=== PATIENT | female | born 1950 | race Caucasian/White ===

== ENCOUNTER 2018-09-10 15:47 | Observation (INO) | payer MEDICARE, OTHER ==
[~2018-09-10] VITALS: Ht 152.4 cm; Wt 73.7 kg
[2018-09-10] MEDS ORDERED: MULTCAP PO (16:10)
[2018-09-10] MEDS ORDERED: ROPIvacaine 0.5% 30 ML INJECTION (J2795 PER 1MG) ONE (16:19)
[2018-09-10] MEDS ORDERED: dexameTHASONE 10 MG/1 ML VIAL PRES.FREE (J1100) ONE (16:19)
[2018-09-10] MEDS ORDERED: ONDANSETRON 4MG/2ML VIAL (J2405) IV PRN ×2 (16:30→23:45)
[2018-09-10] MEDS ORDERED: MORPHINE 4 MG/ML 1ML VIAL/SYRINGE (J2270) IV PRN (16:30)
[2018-09-10 16:34] LABS: BASO % 0.2 % (0.0-1.0); EOS % 0.1 % (0.0-3.0); HEMATOCRIT 40.8 % (36.0-47.0); HEMOGLOBIN 13.6 g/dl (12.0-15.5); LYMPH # 1.3 10^3/uL (1.5-4.5); LYMPH % 13.2 % (24.0-44.0); MEAN CORPUSCULAR HEMOGLOBIN 31.9 pg (27.0-33.0); MEAN CORPUSCULAR HGB CONC 33.3 g/dl (32.0-36.5); MEAN CORPUSCULAR VOLUME 95.8 fl (80.0-96.0); MONO # 0.5 10^3/uL (0.0-0.8); MONO % 5.4 % (0.0-5.0); NEUTROPHILS # 8.1 10^3/uL (1.8-7.7); NEUTROPHILS % 80.9 % (36.0-66.0); PLATELET COUNT, AUTOMATED 275 10^3/uL (150-450); RED BLOOD COUNT 4.26 10^6/uL (4.00-5.40)
[2018-09-10] MEDS ORDERED: PEPC10TA6 PO (16:43)
[2018-09-10 16:48] LABS: INR 0.97; PROTHROMBIN TIME 12.6 SECONDS (11.8-14.0)
[2018-09-10 16:50] LABS: ALT/SGPT 27 U/L (12-78); BILIRUBIN,TOTAL 0.9 MG/DL (0.2-1.0); BLOOD UREA NITROGEN 13 MG/DL (7-18); CALCIUM LEVEL 9.3 MG/DL (8.8-10.2); CARBON DIOXIDE LEVEL 30 MEQ/L (21-32); CHLORIDE LEVEL 105 MEQ/L (98-107); CREATININE FOR GFR 0.84 MG/DL (0.55-1.30); GLOMERULAR FILTRATION RATE > 60.0 (>45); GLUCOSE, FASTING 105 MG/DL (70-100); POTASSIUM SERUM 4.2 MEQ/L (3.5-5.1); SODIUM LEVEL 139 MEQ/L (136-145); TOTAL PROTEIN 7.5 GM/DL (6.4-8.2)
--- NOTE | 2018-09-10 16:51 | HPEPDOC ---
General Date of Admission 09/10/18 Date of Service: Sep 10, 2018 Attending Physician: LISSETTE CHUA MD Chief Complaint The patient is a 68-year-old female admitted with a reason for visit of Broken W rist. Source: Patient Exam Limitations: No limitations Timing/Duration: 4-6 hours Severity: Moderate Associated Symptoms: Other (pain in left wrist) History of Present Illness 68 years old white female with no past medical history CAD and mechanical fall sustaining injury to the distal radius on left side and was sent here for orthopedic consultation. Patient complaining of pain at this fracture site, otherwise no other complaints. No chest pain, no nausea, vomiting, no diarrhea, no syncope. Pain is limited to left wrist, nonradiating, sharp, relieved with NSAIDs exacerbated by movement, not as not associated with any other symptoms. Patient will be admitted to medical floor for possible surgery today Home Medications Scheduled Multivitamin (Multivitamins) 1 Each Capsule, 1 CAP PO DAILY, (Reported) Scheduled PRN Famotidine (Pepcid AC) 10 Mg Tablet, 10 MG PO BID PRN for HEARTBURN, (Reported) Allergies Coded Allergies: Tetracyclines (Verified Allergy, Unknown, hives, 09/10/18) Past Medical History Medical History None Surgical History C-sections 2 Family History Significant Family History: No pertinent family hx Social History * Smoker: Denies Alcohol: Denies Drugs: denies A-FIB/CHADSVASC A-FIB History Current/History of A-Fib/PAF?: No Review of Systems Constitutional: Denies: Chills, Fever, Malaise, Night Sweats, Weakness, Fatigue, Weight Loss, Lethargy, Other Eyes: Denies: Pain, Vision change, Conjunctivae inflammation, Eyelid inf lammation, Redness, Other ENT: Denies: Head Aches, Ear Pain, Dysphagia, Sinus Congestion, Post Nasal Drip, Sore Throat, Epistaxis, Other Symptoms Skin: Denies: Rash, Lesions, Jaundice, Bruising, Itching, Dry, Breakdown, Nail Changes, Other Pulmonary: Denies: Dyspnea, Cough, Pleuritic Chest Pain, Other Symptoms Cardiovascular: Denies: Chest Pain, Palpitations, Orthopnea, Paroxysmal Noc. Dyspnea, Edema, Lt Headedness, Other Symptoms Gastrointestinal: Denies: Nausea, Vomiting, Abdominal Pain, Diarrhea, Constipation, Melena, Hematochezia, Other Symptoms Genitourinary: Denies: Dysuria, Frequency, Incontinence, Hematuria, Retention, Other Symptoms Hematologic: Denies: Bruising, Bleeding Excessively, Petecchia, Purpura, Enlarged Lymph Nodes, Other Hematologic Endocrine: Denies: Polydipsia, Polyphagia, Polyuria, Heat Intolerance, Cold Intolerance, Other Endocrine Sx Musculoskeletal: Reports: Other Symptoms (, left wrist pain) Neurological: Denies: Weakness, Numbness, Incoordination, Change in speech, Confusion, Seizures, Other Symptoms Psych: Denies: Mood Normal, Anxiety, Depression, Memory Issues, Thoughts of Self Harm, Anger, Thoughts of Harming Other, Other Psych Physical Examination General Exam: Positive: Alert, Cooperative, No Acute Distress Eye Exam: Positive: PERRLA, Conjunctiva & lids normal ENT Exam: Positive: Atraumatic, Mucous membr. moist/pink Neck Exam: Positive: Supple Chest Exam: Positive: Clear to auscultation, Normal air movement Heart Exam: Positive: Rate Normal, Normal S1 Abdomen Exam: Positive: Normal bowel sounds, Soft Extremity Exam: Positive: Normal pulses Skin Exam: Positive: Nl turgor and temperature, Breakdown Neuro Exam: Positive: Normal Speech, Strength at 5/5 X4 ext (unable to examine her left upper extremity, patient has a soft cast on), Sensation Intact Psych Exam: Positive: Mental status NL, Mood NL, Oriented x 3 Vital Signs Vital Signs Date Time Temp Pulse Resp B/P (MAP) Pulse Ox O2 Delivery O2 Flow Rate FiO2 09/10/18 15:48 96.9 71 17 184/84 (117) 96 Room Air Laboratory Data Labs 24H Laboratory Tests 2 09/10/18 16:19: Immature Granulocyte % (Auto) 0.2, White Blood Count 10.0, Red Blood Count 4.26, Hemoglobin 13.6, Hematocrit 40.8, Mean Corpuscular Volume 95.8, Mean Corpuscular Hemoglobin 31.9, Mean Corpuscular Hemoglobin Concent 33.3, Red Cell Distribution Width 12.6, Platelet Count 275, Neutrophils (%) (Auto) 80.9H, Lymphocytes (%) (Auto) 13.2L, Monocytes (%) (Auto) 5.4H, Eosinophils (%) (Auto) 0.1, Basophils (%) (Auto) 0.2, Neutrophils # (Auto) 8.1H, Lymphocytes # (Auto) 1.3L, Monocytes # (Auto) 0.5, Eosinophils # (Auto) 0.0, Basophils # (Auto) 0.0, Nucleated Red Blood Cells % (auto) 0.0 CBC/BMP Laboratory Tests 09/10/18 16:19 Red Blood Count 4.26, Mean Corpuscular Volume 95.8, Mean Corpuscular Hemoglobin 31.9, Mean Corpuscular Hemoglobin Concent 33.3, Red Cell Distribution Width 12.6, Neutrophils (%) (Auto) 80.9 H, Lymphocytes (%) (Auto) 13.2 L, Monocytes (%) (Auto) 5.4 H, Eosinophils (%) (Auto) 0.1, Basophils (%) (Auto) 0.2, Neutrophils # (Auto) 8.1 H, Lymphocytes # (Auto) 1.3 L, Monocytes # (Auto) 0.5, Eosinophils # (Auto) 0.0, Basophils # (Auto) 0.0 Problems (1) Wrist fracture, left Status: Acute Problem Text: Admit patient to medical floor Morphine sulfate when necessary for pain Zofran when necessary for nausea, vomiting DVT prophylaxis with bilateral SCDs will avoid anticoagulation as patient is possibly going for surgery Patient EKG shows low-voltage but no acute ST-T changes, normal sinus rhythm Chest x-ray: Clear lung stokes, possible hiatal hernia CBC, CMP and PT/INR essentially within normal limits Patient is medically stable and clear for surgery pending. Risk stratification: ASA class I Plan / VTE VTE Prophylaxis Ordered?: Yes VTE Exclusion Pharmacological: Other (presurgical) LISSETTE CHUA MD Sep 10, 2018 16:51
[2018-09-10] MEDS ORDERED: NS 1,000 ML IV SCH (17:00)
--- NOTE | 2018-09-10 17:01 | REP ---
Clinical: Preoperative assessment. Comparison: None. Findings: The cardiac silhouette is normal. Hiatal hernia is suspected. The bilateral lung stokes are clear and without focal consolidation, effusion, or pneumothorax. Skeletal structures are intact. Impression: Possible hiatal hernia versus mediastinal mass. No acute pleuroparenchymal process. Electronically Signed by Rony Faulkner MD 09/10/2018 04:53 P
[2018-09-10] MEDS ORDERED: BUPIVACAINE/EPIN 0.25% 30 ML VIAL As Ordered ONE (18:27)
[2018-09-10] MEDS ORDERED: ceFAZolin 2 GM/D5W 50 ML IV BAG (J0690 PER 500MG) As Ordered ONE (18:27)
[2018-09-10] MEDS ORDERED: ceFAZolin 1GM INJ (J0690 PER 500MG) As Ordered ONE (18:27)
[2018-09-10] MEDS ORDERED: PROPOFOL 200 MG/20 ML VIAL As Ordered ONE (19:12)
[2018-09-10] MEDS ORDERED: ONDANSETRON 4MG/2ML VIAL (J2405) As Ordered ONE (19:13)
[2018-09-10] MEDS ORDERED: LIDOCAINE 2% INJ 100 MG/5 ML SDV (FOR ANES.) As Ordered ONE (19:13)
[2018-09-10] MEDS ORDERED: dexameTHASONE 4 MG/ML 1ML VIAL (J1100) As Ordered ONE (19:13)
[2018-09-10] MEDS ORDERED: fentaNYL 100 MCG/2 ML INJECTION (J3010) As Ordered ONE (19:23)
[2018-09-10] MEDS ORDERED: MIDAZOLAM INJ 2 MG/2 ML VIAL (J2250) As Ordered ONE (19:23)
[2018-09-10] MEDS ORDERED: fentaNYL 100 MCG/2 ML INJECTION (J3010) IV ONE (20:20)
[2018-09-10] MEDS ORDERED: MIDAZOLAM INJ 2 MG/2 ML VIAL (J2250) IV ONE (20:20)
[2018-09-10] MEDS ORDERED: ePHEDrine SULFATE 25 MG/5 ML(5MG/ML) SYRINGE As Ordered ONE (21:16)
[2018-09-10] MEDS ORDERED: fentaNYL 100 MCG/2 ML INJECTION (J3010) IV PRN (23:45)
[2018-09-10] MEDS ORDERED: oxyCODONE 5MG TAB PO PRN (23:45)
[2018-09-10] MEDS ORDERED: LR 1,000 ML IV SCH (23:45)
[2018-09-11] VITALS (8 sets, daily range): BP systolic 98–141; BP diastolic 60–79
[2018-09-11] MEDS: LR 1,000 ML IV SCH ×2 (00:13→10:45)
[2018-09-11] MEDS ORDERED: MORPHINE 4 MG/ML 1ML VIAL/SYRINGE (J2270) IV PRN (00:45)
[2018-09-11] MEDS ORDERED: PERCOCET 5MG/325MG TAB PO PRN ×2 (00:45)
[2018-09-11] MEDS ORDERED: ONDANSETRON 4MG/2ML VIAL (J2405) IV PRN (00:45)
[2018-09-11] MEDS ORDERED: ACETAMINOPHEN TAB 650MG DOSE (2X325MG) PO PRN (01:00)
[2018-09-11] MEDS ORDERED: PERC5TAB12 PO ×2 (06:42→06:43)
--- NOTE | 2018-09-11 07:04 | REP ---
Clinical: Fracture fixation. Technique: Intraoperative fluoroscopic imaging using portable C-arm technique. Findings: Multiple images demonstrate the patient to be status post open reduction and satisfactory fixation for distal radial fractures. Total fluoroscopic time 1 minute 57 seconds. Impression: Satisfactory reduction and open fixation. Electronically Signed by Rony Faulkner MD 09/11/2018 06:55 A
--- NOTE | 2018-09-11 07:07 | REP ---
Clinical: Status post fixation. Technique: AP and lateral views left wrist. Technique: The patient is status post gas factory open reduction and fixation for distal radial metaphyseal fracture. Overlying cast material limits evaluation of fine bony detail. Impression: Status post open reduction and fixation for distal radial metaphyseal fracture. Electronically Signed by Rony Faulkner MD 09/11/2018 06:59 A
[2018-09-11] MEDS ORDERED: METAMUCIL (PSYLLIUM) PACKET PO SCH (09:00)
[2018-09-11] MEDS ORDERED: MAALOX 30 ML SUSP *UDC PO PRN ×2 (10:15→10:30)
--- NOTE | 2018-09-11 11:18 | IPNPDOC ---
Subjective Date Seen The patient was seen on 09/11/18. Subjective Chief Complaint/HPI Patient had ORIF done last night. Still has the numbness does not feel her left arm secondary to nerve block in no apparent distress and offers no acute complaints General: Denies: ROS Unobtainable, Chills, Night Sweats, Fatigue, Malaise, Normal Appetite, Other Symptoms Constitutional: Denies: Chills, Fever, Malaise, Night Sweats, Weakness, Fatigue, Weight Loss, Lethargy, Other Eyes: Denies: Pain, Vision change, Conjunctivae inflammation, Eyelid inflammation, Redness, Other ENT: Denies: Head Aches, Ear Pain, Dysphagia, Sinus Congestion, Post Nasal Drip , Sore Throat, Epistaxis, Other Symptoms Skin: Denies: Rash, Lesions, Jaundice, Bruising, Itching, Dry, Breakdown, Nail Changes, Other Pulmonary: Denies: Dyspnea, Cough, Pleuritic Chest Pain, Other Symptoms Cardiovascular: Denies: Chest Pain, Palpitations, Orthopnea, Paroxysmal Noc. Dyspnea, Edema, Lt Headedness, Other Symptoms Gastrointestinal: Denies: Nausea, Vomiting, Abdominal Pain, Diarrhea, Constipation, Melena, Hematochezia, Other Symptoms Musculoskeletal: Denies: Neck Pain, Back Pain, Shoulder Pain, Arm Pain, Hand Pain, Leg Pain, Foot Pain, Joint Pain, Muscle Pain, Spasms, Other Symptoms Neurological: Denies: Weakness, Numbness, Incoordination, Change in speech, Confusion, Seizures, Other Symptoms Psych: Denies: Mood Normal, Anxiety, Depression, Memory Issues, Thoughts of Self Harm, Anger, Thoughts of Harming Other, Other Psych Objective Physical Examination General Exam: Positive: Alert, Cooperative, No Acute Distress Chest Exam: Positive: Clear to auscultation, Normal air movement Heart Exam: Positive: Rate Normal, Normal S1 Abdomen Exam: Positive: Normal bowel sounds, Soft Extremity Exam: Positive: Normal pulses Skin Exam: Positive: Nl turgor and temperature, Breakdown Psych Exam: Positive: Mental status NL, Mood NL, Oriented x 3 Assessment /Plan Problems (1) Wrist fracture, left Status: Acute Problem Text: Status post ORIF of left wrist Continue pain management DC SCDs Start Lovenox Discharge once cleared by orthopedic Plan/VTE VTE Prophylaxis Ordered?: Yes VTE Exclusion Pharmacological: Other (presurgical) VS, I&O, 24H, Fishbone Vital Signs/I&O Vital Signs Date Time Temp Pulse Resp B/P (MAP) Pulse Ox O2 Delivery O2 Flow Rate FiO2 09/11/18 09:15 97.5 85 18 104/69 (81) 95 09/11/18 05:15 2.0 09/10/18 18:47 Room Air I&O- Last 24 Hours up to 6 AM 09/11/18 06:00 Intake Total 2660 ml Output Total 1280 ml Balance 1380 ml Laboratory Data 24H LABS Laboratory Tests 2 09/10/18 16:19: Immature Granulocyte % (Auto) 0.2, White Blood Count 10.0, Red Blood Count 4.26, Hemoglobin 13.6, Hematocrit 40.8, Mean Corpuscular Volume 95.8, Mean Corpuscular Hemoglobin 31.9, Mean Corpuscular Hemoglobin Concent 33.3, Red Cell Distribution Width 12.6, Platelet Count 275, Neutrophils (%) (Auto) 80.9H, Lymphocytes (%) (Auto) 13.2L, Monocytes (%) (Auto) 5.4H, Eosinophils (%) (Auto) 0.1, Basophils (%) (Auto) 0.2, Neutrophils # (Auto) 8.1H, Lymphocytes # (Auto) 1.3L, Monocytes # (Auto) 0.5, Eosinophils # (Auto) 0.0, Basophils # (Auto) 0.0, Nucleated Red Blood Cells % (auto) 0.0, Prothrombin Time 12.6, Prothromb Time International Ratio 0.97, Anion Gap 4L, Glomerular Filtration Rate > 60.0, Blood Urea Nitrogen 13, Creatinine 0.84, Sodium Level 139, Potassium Level 4.2, Chloride Level 105, Carbon Dioxide Level 30, Calcium Level 9.3, Aspartate Amino Transf (AST/SGOT) 19, Alanine Aminotransferase (ALT/SGPT) 27, Alkaline Phosphatase 81, Total Bilirubin 0.9, Total Protein 7.5, Albumin 4.0, Albumin/Globulin Ratio 1.14 CBC/BMP Laboratory Tests 09/10/18 16:19 Red Blood Count 4.26, Mean Corpuscular Volume 95.8, Mean Corpuscular Hemoglobin 31.9, Mean Corpuscular Hemoglobin Concent 33.3, Red Cell Distribution Width 12.6, Neutrophils (%) (Auto) 80.9 H, Lymphocytes (%) (Auto) 13.2 L, Monocytes (%) (Auto) 5.4 H, Eosinophils (%) (Auto) 0.1, Basophils (%) (Auto) 0.2, Neutrophils # (Auto) 8.1 H, Lymphocytes # (Auto) 1.3 L, Monocytes # (Auto) 0.5, Eosinophils # (Auto) 0.0, Basophils # (Auto) 0.0, Calcium Level 9.3, Aspartate Amino Transf (AST/SGOT) 19, Alanine Aminotransferase (ALT/SGPT) 27, Alkaline Phosphatase 81, Total Bilirubin 0.9, Total Protein 7.5, Albumin 4.0 LISSETTE CHUA MD Sep 11, 2018 11:18
[2018-09-11] MEDS ORDERED: ONDANSETRON 4 MG TAB (S0181) PO ONE (13:30)
[2018-09-11] MEDS ORDERED: ROPIvacaine 0.5% 30 ML INJECTION (J2795 PER 1MG) ONE (13:44)
[2018-09-11] MEDS ORDERED: dexameTHASONE 10 MG/1 ML VIAL PRES.FREE (J1100) ONE (13:44)
--- NOTE | 2018-09-11 14:14 | DS.PDOC ---
Discharge Summary General Date of Admission Sep 10, 2018 at 16:18 Date of Discharge 09/11/2018 Attending Physician: LISSETTE CHUA MD Discharge Summary PROCEDURES PERFORMED DURING STAY: None. ADMITTING DIAGNOSES: 1. Left wrist fracture. DISCHARGE DIAGNOSES: 1. Left wrist fracture. COMPLICATIONS/CHIEF COMPLAINT: Left Wrist Fracture. HISTORY OF PRESENT ILLNESS: 68 years old white female with no past medical history CAD and mechanical fall sustaining injury to the distal radius on left side and was sent here for orthopedic consultation. Patient complaining of pain at this fracture site, otherwise no other complaints. No chest pain, no nausea, vomiting, no diarrhea, no syncope. Pain is limited to left wrist, nonradiating, sharp, relieved with NSAIDs exacerbated by movement, not as not associated with any other symptoms. Patient will be admitted to medical floor for possible surgery today. HOSPITAL COURSE: [Patient was admitted with the diagnosis of left wrist fracture. She was seen by orthopedic and was decided to take patient or last night. Patient was seen medically by us and was cleared for surgery as patient has no medical history. Patient was a admitted to medical floor after surgery and once she got her sensation back in the left arm. She has been discharged by orthopedics and she will follow with orthopedic as an outpatient. DISCHARGE MEDICATIONS: Please see below. ALLERGIES: Please see below. PHYSICAL EXAMINATION ON DISCHARGE: VITAL SIGNS: Please see below. GENERAL: Within normal limits HEENT: PERRLA NECK: Supple CARDIOVASCULAR EXAMINATION: S1, S2, regular RESPIRATORY EXAMINATION: Clear to A&P ABDOMINAL EXAMINATION: Benign EXTREMITIES: No clubbing, cyanosis, edema. Cast at the left of SKIN: Normal NEUROLOGICAL EXAMINATION: . No focal motor sensory deficit PSYCHIATRIC EXAMINATION: Normal LABORATORY DATA: Please see below. IMAGING: Chest x-ray within normal limits PROGNOSIS: Good ACTIVITY: As tolerated. DIET: As tolerated DISCHARGE PLAN: Follow with orthopedic as an outpatient DISPOSITION: 01 Home, Self-Care. DISCHARGE INSTRUCTIONS: 1. As above. ITEMS TO FOLLOWUP ON ON OUTPATIENT: 1. Follow with orthopedic as outpatient. DISCHARGE CONDITION: Stable. TIME SPENT ON DISCHARGE: 35 minutes. Vital Signs/I&Os Vital Signs Date Time Temp Pulse Resp B/P (MAP) Pulse Ox O2 Delivery O2 Flow Rate FiO2 09/11/18 13:28 18 09/11/18 09:15 97.5 85 104/69 (81) 95 09/11/18 05:15 2.0 09/10/18 18:47 Room Air I&O- Last 24 Hours up to 6 AM 09/11/18 06:00 Intake Total 2660 ml Output Total 1280 ml Balance 1380 ml Laboratory Data Labs 24H Laboratory Tests 2 09/10/18 16:19: Immature Granulocyte % (Auto) 0.2, White Blood Count 10.0, Red Blood Count 4.26, Hemoglobin 13.6, Hematocrit 40.8, Mean Corpuscular Volume 95.8, Mean Corpuscular Hemoglobin 31.9, Mean Corpuscular Hemoglobin Concent 33.3, Red Cell Distribution Width 12.6, Platelet Count 275, Neutrophils (%) (Auto) 80.9H, Lymphocytes (%) (Auto) 13.2L, Monocytes (%) (Auto) 5.4H, Eosinophils (%) (Auto) 0.1, Basophils (%) (Auto) 0.2, Neutrophils # (Auto) 8.1H, Lymphocytes # (Auto) 1.3L, Monocytes # (Auto) 0.5, Eosinophils # (Auto) 0.0, Basophils # (Auto) 0.0, Nucleated Red Blood Cells % (auto) 0.0, Prothrombin Time 12.6, Prothromb Time International Ratio 0.97, Anion Gap 4L, Glomerular Filtration Rate > 60.0, Blood Urea Nitrogen 13, Creatinine 0.84, Sodium Level 139, Potassium Level 4.2, Chloride Level 105, Carbon Dioxide Level 30, Calcium Level 9.3, Aspartate Amino Transf (AST/SGOT) 19, Alanine Aminotransferase (ALT/SGPT) 27, Alkaline Phosphatase 81, Total Bilirubin 0.9, Total Protein 7.5, Albumin 4.0, Alb umin/Globulin Ratio 1.14 CBC/BMP Laboratory Tests 09/10/18 16:19 Red Blood Count 4.26, Mean Corpuscular Volume 95.8, Mean Corpuscular Hemoglobin 31.9, Mean Corpuscular Hemoglobin Concent 33.3, Red Cell Distribution Width 12.6, Neutrophils (%) (Auto) 80.9 H, Lymphocytes (%) (Auto) 13.2 L, Monocytes (%) (Auto) 5.4 H, Eosinophils (%) (Auto) 0.1, Basophils (%) (Auto) 0.2, Neutrop hils # (Auto) 8.1 H, Lymphocytes # (Auto) 1.3 L, Monocytes # (Auto) 0.5, Eosinophils # (Auto) 0.0, Basophils # (Auto) 0.0, Calcium Level 9.3, Aspartate Amino Transf (AST/SGOT) 19, Alanine Aminotransferase (ALT/SGPT) 27, Alkaline Phosphatase 81, Total Bilirubin 0.9, Total Protein 7.5, Albumin 4.0 Discharge Medications Scheduled Multivitamin (Multivitamins) 1 Each Capsule, 1 CAP PO DAILY, (Reported) Scheduled PRN Famotidine (Pepcid AC) 10 Mg Tablet, 10 MG PO BID PRN for HEARTBURN, (Reported) Oxycodone HCl/Acetaminophen (Percocet 5-325 mg Tablet) 1 Each Tablet, 1 TAB PO Q4H PRN for PAIN Allergies Coded Allergies: Tetracyclines (Verified Allergy, Unknown, hives, 09/10/18) LISSETTE CHUA MD Sep 11, 2018 14:14
--- NOTE | 2018-09-11 21:51 | ECGEPIP ---
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
[2018-09-12] MEDS ORDERED: ENOXAPARIN 40 MG/0.4 ML SYRINGE (J1650) SC SCH (09:00)
--- NOTE | 2018-09-12 18:14 | CR ---
DATE OF CONSULTATION: 09/10/2018 CONSULTATION IN THE EMERGENCY ROOM (ER). Asked to see this patient to evaluate left wrist pain. HISTORY: A 68-year-old female fell on a boat ramp while pulling up a kayak on [place]. Has significant pain and deformity. Came to the emergency room for further evaluation. Currently nothing by mouth. Does not have any medical issues. 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 Medical record and health summary reviewed in the chart. SOCIAL HISTORY: She is accompanied by her . REVIEW OF SYSTEMS: Complaining only of left upper extremity pain and deformity. All else negative in 12 other areas. IMAGING STUDIES: Reflect a comminuted displaced distal radius fracture. CLINICAL EXAM: Alert, oriented, cooperative. Mood and affect appropriate. There is mild swelling at the wrist, moderate deformity. No open wounds. Sensate fingers. Wiggles the fingers. No trauma at the elbow. No other trauma is appreciated. The patient is alert, oriented, cooperative. Mood and affect are appropriate. Appears to be younger than her stated age. Healthy skin, face, upper and lower extremities. No shortness of breath. CARDIAC: Regular at 80 beats per minute. IMPRESSION: Comminuted intra-articular distal radius fracture, multi-part. RECOMMENDATIONS: I spoke with the patient and her about the pathology involved. We talked about management options, including placement of an external fixator, a cast, or a volar plate. I suggested that the volar plate could be somewhat easier to manage as it is not protruding from the patient's arm. Cast would need to be above the arm. The patient elects for plate fixation. I talked to the patient specifically about the possibility that we would not be able to reduce the fracture well the operating room, and in that event, that I would convert to an external fixator. I explained what an external fixator walks. She agreed to proceed with plating versus external fixation. For further details please refer to the medical record. I spent approximately 45 minutes altogether seeing this patient and coordinating for her operative care. Discussed the case with Dr. Saeed. I discussed the case with anesthesia. I discussed the case with the operating room (OR) personnel as well as vendor for [employer] plate.
--- NOTE | 2018-09-13 08:28 | RO ---
DATE OF PROCEDURE: 09/10/2018 PREOPERATIVE DIAGNOSIS: Comminuted intra-articular left upper extremity distal radius fracture. POSTOPERATIVE DIAGNOSIS: Comminuted intra-articular left upper extremity distal radius fracture. PROCEDURE PERFORMED: Open reduction internal fixation with volar plate hardware of 3+ part distal radius fracture. INTRAOPERATIVE FINDINGS: At least three-part intra-articular distal radius fracture. SUREON: Dr. Kendell Carroll. WATER PUMPER: ANESTHESIA: Dr. Correia In the we and Dr. Mary Alice Burnett. Local monitored anesthesia (LMA). ESTIMATED BLOOD LOSS: Less than 40 mL. FLUIDS REPLACED: Crystalloid. COMPLICATIONS: None. TOURNIQUET: Tourniquet was inflated. The total tourniquet time was approximately 1 hour. INDICATIONS: Fall on left upper extremity. CONSENT: As outlined in history and physical consult document. COMPONENTS USED: Include a [employer] marrow three-hole volar plate system. DESCRIPTION OF PROCEDURE: Identified in the holding area, site and side verified, brought to the operating room. Once anesthesia was administered, time-out was accomplished and she was sterilely prepped and draped in the usual fashion for exposure of left upper extremity for fixation of the wrist. Fluoroscopy was utilized. At this point I implemented a closed reduction of the fracture and the appearance was anatomic on the closed reduction, although the fracture was grossly unstable. There appeared to be a discrete fracture extending towards the scapholunate interval at the distal radius. Next, since I was able to reduce the fracture and it appeared to be amendable to plating. We elected to plate it. Incision outlined with a marking pen, infiltrated with quarter Marcaine with epinephrine. Incision was over the flexor carpi radialis tendon. Incision was made with 10-blade knife, developed down through skin, subcuticular tissues. Fascia over the flexor carpi radialis was opened at its floor. Dissection continued exposing the quadratus. I identified the radial artery, which was palpable and I protected this. The pronator quadratus was reflected off of the lateral side of the distal radius with the Bovie cautery as well as the craig elevator. The fracture was appreciated to extend toward the watershed area and the comminuted appearance, perhaps was a bit more extensive than appeared on post reduction imaging. The bone quality was very marginal as well, this perhaps due to potential for osteoporosis. I made several attempts to obtain a reduction, which was difficult. I considered opening the external fixator and placing an external fixator. However, I was able to implement the closed reduction and pass a K-wire through the radial styloid securing the radial side of the fragment. This improved stability quite significantly. It was placed from the dorsal lateral side percutaneously. Next, once that was accomplished we were able to hold the fracture reduced. I applied the volar plate. The placement of the plate was visualized fluoroscopically in AP and lateral plane and I placed guidewires pinning the plate into place. Then I drilled the distal row of screws for the plate, which were threaded screws, measured them and placed the threaded locking screws. The patient seemed to have very poor bite of most of the screws, which did lock into the plate supporting the joint surface. I placed the proximal screws as well and directed them. The proximal cortical screws were then drilled in place further reducing the volar tilt. Fluoroscopic images were taken throughout this process. At the conclusion, fluoroscopic AP and lateral were taken and suggested very good alignment of the fracture, although, significant comminution was also suggested that on the AP and lateral plane. Irrigation was accomplished the pronator quadratus muscle was very friable and not able to be repaired. I did repair the dermis and placed a Monocryl stitch. Sterile dressing was applied and because of the potential for osteoporotic bone to have problems, I did place the patient in a short-arm cast. This was tolerated. Tourniquet was deflated prior to wound closure and the patient was extubated, moved to recovery in good condition. Please also note the patient received a regional block from the central processing technician Dr. Mary Alice Burnett prior to the surgery as well.
== END 2018-09-11 13:45 | disposition home or self-care (01) ==
LOC: M ED 15:47 → M ED INP 16:18 → M MS5PR 09-11 00:13
PROVIDERS: ADMIT Internal Medicine; ATTEND Internal Medicine
DX: S52.572A Other intraarticular fracture of lower end of left radius, initial encounter for closed fracture (principal); W10.2XXA Fall (on)(from) incline, initial encounter; Y92.828 Other wilderness area as the place of occurrence of the external cause; K21.9 Gastro-esophageal reflux disease without esophagitis; Y93.16 Activity, rowing, canoeing, kayaking, rafting and tubing; Y99.8 Other external cause status
CPT/HCPCS: 25609; 71046; 73100; 73110; 80053; 85025; 85610; 93005; 96374; 96376; 99284; C1713; G0378; J0690; J1100; J2250; J2270; J2405; J2795